=== PATIENT | female | born 1955 | race Caucasian/White ===

== ENCOUNTER → 2017-09-22 | Outpatient (CLI) | payer BC ==
[~2017-09-22] MED LIST: SINCALIDE 3 MCG/VIAL INJ ONE
--- NOTE | 2017-09-22 13:53 | Diagnostic Imaging Report ---
PROCEDURE:ABDOMINAL ULTRASOUND COMPARISON:None. INDICATIONS:RUQ Pain TECHNIQUE: Prabhakar-scale and color sonographic images were obtained of the abdomen in transverse and sagittal planes. FINDINGS: Limited by body habitus. Liver: 14 cm in length in right midclavicular line. Increased echogenicity. No masses. Main portal vein: 1.1 cm, hepatopetal flow Gallbladder: Not distended. No gallstones or wall thickening. Common Bile Duct: 0.3 cm. Sonographic Bernard's sign: Negative Right kidney: 11.3 cm. No hydronephrosis. Left kidney: 9.5 cm. No hydronephrosis. Spleen: 9.5 cm. Pancreas: The visualized portions are unremarkable. Inferior vena cava: Patent Aorta: Mid to distal aneurysm measuring 4.3 cm. Ascites: None CONCLUSION: Hepatic steatosis. Mid to distal abdominal aortic aneurysm. Dictated by: Stas Dunaway M.D. on 09/22/2017 at 13:28 Electronically approved by: Stas Dunaway M.D. on 09/22/2017 at 13:28
--- NOTE | 2017-09-23 06:27 | Diagnostic Imaging Report ---
Hepatobiliary Scan with Gallbladder Ejection Fraction Clinical information: 62 F with RUQ abdominal pain Technique: Following intravenous administration of 7.2 millicuries of Tc-99m mebrofenin, dynamic images of the abdomen in the anterior projection were obtained through 35 minutes. Sincalide (CCK analog) 1.3 micrograms was administered intravenously over 30 minutes with additional imaging for determination of gallbladder ejection fraction. Discussion: Perfusion of the liver is normal. Extraction of tracer by the liver parenchyma is normal. Tracer appears promptly within the biliary tract. The gallbladder begins to fill at 20 minutes post injection of tracer and fills adequately. Tracer is seen in the small bowel by 15 minutes. There is no contractile response by the gallbladder to the pharmacologic dose of sincalide. No emptying of the gallbladder occurs during the 30 minute infusion. Impression: 1. Filling of the gallbladder excludes acute cystic duct obstruction/acute cholecystitis. 2. The gallbladder ejection fraction is undefined as there is no emptying of the gallbladder during the infusion of sincalide. This absence of a contractile response to sincalide supports the clinical diagnosis of chronic cholecystitis/gallbladder dyskinesia. Signed by: Dr. Alethea Hager M.D. on 09/23/2017 6:24 AM
== END ==
LOC: US 11:59
PROVIDERS: ATTEND Internal Medicine Gastroenterology
DX: R10.11 Right upper quadrant pain (principal)
CPT/HCPCS: 76700; 78227; A9537; J2805